=== PATIENT | male | born 1960 | race Caucasian/White ===

== ENCOUNTER 2020-08-08 18:11 | Observation (INO) ==
[2020-08-08] MEDS ORDERED: Isovue-370 500 ML BOTTLE IVP ONE (18:38)
[2020-08-08 18:46] LABS: Basophils # 0.1 K/mcL (0.0-0.2); Basophils % 0.6 %; Eosinophils # 0.1 K/mcL (0.0-0.6); Eosinophils % 0.6 %; Hematocrit 42.1 % (37.5-50.1); Immature Granulocytes % 0.5 % (0-4); Lymphocytes # 0.9 K/mcL (0.6-4.6); Mean Corpuscular HGB Conc 35.6 g/dL (31.6-35.5); Mean Corpuscular Hemoglobin 35.3 pg (28.0-33.3); Mean Corpuscular Volume 99.1 fL (83.0-100.0); Mean Platelet Volume 10.4 fL (9.4-12.4); Monocytes # 0.6 K/mcL (0.0-1.3); Monocytes % 6.3 %; Neutrophils # 7.6 K/mcL (1.6-8.9); Platelet Count 179 K/mcL (140-400); Red Blood Count 4.25 M/mcL (4.19-5.50); Red Cell Distribution Width 11.2 % (11.5-14.5); White Blood Count 9.2 K/mcL (4.3-11.1)
[2020-08-08] MEDS ORDERED: 0.9 % Sodium Chloride 1,000 ML IVC ONE (18:47)
[2020-08-08] MEDS ORDERED: *HR* HYDROmorphone (PF) 1 MG/ML SYRINGE IVP ONE (18:47)
[2020-08-08 18:48] LABS: Bilirubin,Urine Negative (Negative); Blood,Urine Negative (Negative); Clarity,Urine Clear (Clear); Color,Urine Light-Yellow (Yellow); Glucose,Urine (UA) Normal (Normal); Ketones,Urine Negative (Negative); Leukocyte Esterase,Urine Negative (Negative); Nitrite,Urine Negative (Negative); Protein,Urine Negative (Neg-Trace); Specific Gravity,Urine 1.017 (1.010-1.025); Urobilinogen,Urine Normal (Normal)
[2020-08-08 18:53] LABS: Prothrombin Time 11.5 Seconds (9.4-12.1)
[2020-08-08 18:56] LABS: Activated Partial Thrombo Time 31.3 Seconds (26.0-36.0)
[2020-08-08 19:09] LABS: Alanine Aminotransferase 24 Units/L (7-52); Albumin 4.5 g/dL (3.5-5.7); Albumin/Globulin Ratio 1.7 (1.1-2.2); Alkaline Phosphatase 51 Units/L (34-104); Aspartate Amino Transferase 24 Units/L (13-39); BUN/Creatinine Ratio 13 (6-26); Bilirubin,Direct 0.1 mg/dL (0.0-0.2); Bilirubin,Indirect 0.5 mg/dL (0.0-1.0); Bilirubin,Total 0.6 mg/dL (0.3-1.0); Blood Urea Nitrogen 12 mg/dL (8-23); Calcium 9.4 mg/dL (8.6-10.3); Carbon Dioxide 27 mEq/L (23-29); Chloride 100 mEq/L (98-107); Globulin 2.7 g/dL (2.4-3.5); Glucose 92 mg/dL (70-105); Lipase 226 Units/L (11-82); Osmolality,Calculated 283 (280-300); Potassium 3.6 mEq/L (3.5-5.1); Sodium 137 mEq/L (136-145); Total Protein 7.2 g/dL (6.4-8.9); eGFR For African Americans > 60 (> 60); eGFR For Non-African Americans > 60 (> 60)
[2020-08-08] MEDS ORDERED: Naloxone 0.4 MG/ML INJ IVP PRN (21:04)
[2020-08-08] MEDS ORDERED: Ondansetron 4 MG/2 ML VIAL IVP PRN (21:04)
[2020-08-08 21:37] LABS: Chol/HDL Ratio 2.8 (0-4.9); Cholesterol 218 mg/dL (< 200); HDL Cholesterol 78 mg/dL (40-59); LDL Cholesterol,Calculated 122 mg/dL (< 100); Triglycerides 91 mg/dL (< 150)
[2020-08-08] MEDS ORDERED: Nicotine 14 MG PATCH.TD24 TD PRN (22:12)
[2020-08-08] MEDS: 0.9 % Sodium Chloride 1,000 ML IVC SCH (22:28)
[2020-08-09] MEDS: 0.9 % Sodium Chloride 1,000 ML IVC SCH (04:03)
[2020-08-09] MEDS: *HR* Enoxaparin 40 MG/0.4 ML SYRINGE SQ SCH (06:01)
[2020-08-09 06:52] LABS: Basophils % 0.6 %; Eosinophils # 0.1 K/mcL (0.0-0.6); Eosinophils % 1.4 %; Hematocrit 38.2 % (37.5-50.1); Hemoglobin 13.8 g/dL (12.9-16.9); Immature Granulocytes % 0.6 % (0-4); Lymphocytes # 1.1 K/mcL (0.6-4.6); Lymphocytes % 15.1 %; Mean Corpuscular HGB Conc 36.1 g/dL (31.6-35.5); Mean Corpuscular Hemoglobin 35.7 pg (28.0-33.3); Mean Corpuscular Volume 98.7 fL (83.0-100.0); Mean Platelet Volume 11.2 fL (9.4-12.4); Monocytes # 0.6 K/mcL (0.0-1.3); Monocytes % 8.9 %; Neutrophils # 5.1 K/mcL (1.6-8.9); Platelet Count 149 K/mcL (140-400); Red Blood Count 3.87 M/mcL (4.19-5.50); Red Cell Distribution Width 11.2 % (11.5-14.5); Segmented Neutrophils % 73.4 %
[2020-08-09 07:13] LABS: BUN/Creatinine Ratio 14 (6-26); Blood Urea Nitrogen 11 mg/dL (8-23); Calcium 8.6 mg/dL (8.6-10.3); Carbon Dioxide 24 mEq/L (23-29); Chloride 105 mEq/L (98-107); Glucose 88 mg/dL (70-105); Osmolality,Calculated 281 (280-300); Potassium 3.8 mEq/L (3.5-5.1); Sodium 136 mEq/L (136-145); eGFR For African Americans > 60 (> 60); eGFR For Non-African Americans > 60 (> 60)
[2020-08-09] MEDS ORDERED: *HR* LORazepam 2 MG/ML VIAL IVP PRN ×3 (07:35)
[2020-08-09] MEDS: Pantoprazole 40 MG VIAL IVP SCH ×2 (08:33→17:37)
[2020-08-09] MEDS: Folic Acid 1 MG TABLET PO SCH (08:34)
[2020-08-09] MEDS: Thiamine (B-1) 100 MG TABLET PO SCH (08:34)
[2020-08-10 02:12] LABS: Hematocrit 40.9 % (37.5-50.1); Hemoglobin 14.6 g/dL (12.9-16.9); Mean Corpuscular HGB Conc 35.7 g/dL (31.6-35.5); Mean Corpuscular Hemoglobin 35.7 pg (28.0-33.3); Mean Platelet Volume 11.4 fL (9.4-12.4); Platelet Count 144 K/mcL (140-400); Red Blood Count 4.09 M/mcL (4.19-5.50); White Blood Count 5.9 K/mcL (4.3-11.1)
[2020-08-10 02:33] LABS: BUN/Creatinine Ratio 9 (6-26); Blood Urea Nitrogen 8 mg/dL (8-23); Calcium 9.2 mg/dL (8.6-10.3); Carbon Dioxide 23 mEq/L (23-29); Chloride 105 mEq/L (98-107); Glucose 98 mg/dL (70-105); Osmolality,Calculated 284 (280-300); Potassium 3.7 mEq/L (3.5-5.1); Sodium 138 mEq/L (136-145); eGFR For African Americans > 60 (> 60); eGFR For Non-African Americans > 60 (> 60)
[2020-08-10] MEDS: Pantoprazole 40 MG VIAL IVP SCH (05:46)
[2020-08-10] MEDS: *HR* Enoxaparin 40 MG/0.4 ML SYRINGE SQ SCH (05:46)
[2020-08-10 07:44] VITALS: BP 146/89
[2020-08-10] MEDS: Folic Acid 1 MG TABLET PO SCH (08:58)
[2020-08-10] MEDS: Thiamine (B-1) 100 MG TABLET PO SCH (08:58)
== END 2020-08-10 09:47 | disposition home or self-care (01) ==
LOC: EMEROOARM 18:11 → 3ANU 18:11 → SUATTDRO 20:53 → 3ANU 21:08
PROVIDERS: ADMIT Internal Medicine; ATTEND Internal Medicine